=== PATIENT | female | born 1995 | race Caucasian/White ===

== ENCOUNTER 2021-09-21 15:41 | Observation (INO) | payer OTHER ==
[~2021-09-21] VITALS: Ht 160 cm; Wt 73.5 kg
[2021-09-21 17:27] LABS: ALBUMIN 2.1 g/dL (3.4-4.8); CALCIUM 8.3 mg/dL (8.4-11.0); CREATININE 0.47 mg/dL (0.55-1.30); POTASSIUM 3.7 mmol/L (3.5-5.1)
[2021-09-21 18:17] LABS: TOTAL BILIRUBIN 0.2 mg/dL (0.0-1.0)
== END 2021-09-21 20:35 | disposition home or self-care (01) ==
LOC: SPU 15:41
PROVIDERS: ADMIT Obstetrics & Gynecology; ATTEND Obstetrics & Gynecology
DX: O26.893 Other specified pregnancy related conditions, third trimester (principal); L29.9 Pruritus, unspecified; Z3A.38 38 weeks gestation of pregnancy
CPT/HCPCS: 36415; 59025; 76819; 80053; 81002; 82239; G0378